=== PATIENT | female | born 1940 | race African-American/Black ===

== ENCOUNTER 2018-12-28 18:46 | Emergency (ER) | payer OTHER ==
[~2018-12-28] VITALS: Ht 162.6 cm; Wt 81.2 kg
[2018-12-28] MEDS ORDERED: JANUMET 50-1,01 EACH ORAL (19:08)
--- NOTE | 2018-12-28 19:21 | NUR ---
ED Nurse Note: Pt came in due to right foot pain and swelling started yesterday. AO4. NAD. VSS. SWELLING ON RIGHT FOOT NOTED.
[2018-12-28 19:25] VITALS: BP 136/76
[2018-12-28] MEDS ORDERED: Cephalexin 500mg cap ORAL ONE (20:15)
[2018-12-28] MEDS ORDERED: CEPHALEXIN500 MG ORAL (20:22)
[2018-12-28] MEDS ORDERED: TYLENOL EXTRA500 MG ORAL (20:28)
[2018-12-28 20:30] VITALS: BP 136/76
--- NOTE | 2018-12-28 20:30 | NUR ---
ER DISCHARGE NOTE: Patient is cleared to be discharged per ERMD, pt is aox4, on room air, with stable vital signs. pt was given dc and prescription instructions, pt was able to verbalize understanding, pt id band REMOVED. pt is able to ambulate with steady gait. pt took all belongings.
--- NOTE | 2018-12-28 21:22 | Emergency Room Report ---
History of Present Illness General Chief Complaint: Edema Source: Patient Present Illness HPI 78-year-old female presents ED for evaluation. Presents with pain and swelling to her right foot starting yesterday. States that she does have generalized pedal edema to both feet and is taking Lasix but states that there is increased swelling to her right foot. Throbbing, 7 out of 10, nonradiating. Feels warm. History of diabetes. Denies fevers or chills. Denies any recent fall or injury. No other aggravating relieving factors. Denies any other associated symptoms Allergies: Coded Allergies: No Known Allergies (Verified Allergy, Unknown, 07/31/06) Patient History Past Medical History: DM Past Surgical History: none Pertinent Family History: none Social History: Denies: smoking, alcohol use, drug use Now: No Immunizations: UTD Reviewed Nursing Documentation: PMH: Agreed; PSxH: Agreed Nursing Documentation-PMH Past Medical History: No History, Except For Hx Diabetes: Yes Review of Systems All Other Systems: negative except mentioned in HPI Physical Exam Vital Signs Date Time Temp Pulse Resp B/P (MAP) Pulse Ox O2 Delivery O2 Flow Rate FiO2 12/28/18 19:03 99.3 96 17 136/76 94 Room Air Sp02 EP Interpretation: reviewed, normal General Appearance: no apparent distress, alert, GCS 15, non-toxic Head: normocephalic Eyes: bilateral eye normal inspection, bilateral eye PERRL ENT: normal ENT inspection Neck: normal inspection Respiratory: normal inspection Cardiovascular #1: normal inspection Gastrointestinal: normal inspection Rectal: deferred Genitourinary: no CVA tenderness Musculoskeletal: swelling - bilateral feet Neurologic: alert, oriented x3, responsive, motor strength/tone normal, sensory intact, speech normal Psychiatric: normal inspection Skin: other - erythema/warmth to R foot. no flucutance or discharge Lymphatic: normal inspection Medical Decision Making Diagnostic Impression: Primary Impression: Cellulitis of foot ER Course Hospital Course 78-year-old female presents to ED with pain/swelling to R foot Differential diagnoses include: Cellulitis, dermatitis, insect bite, abscess Clinical course Patient placed on stretcher. After initial history, physical exam reveals an elderly female in no acute distress. On exam there is some erythema and swelling to the right foot around the first big toe. No fluctuance or discharge. No bruising or crepitus. There is some generalized swelling to both feet. swelling. No calf tenderness. X-ray shows no evidence of acute fracture. Discussed findings with patient. Likely mild cellulitis. Patient is a diabetic. No evidence of penetrating wound injury. We will discharge with antibiotics. Safe for discharge or close outpatient follow-up. States she has a PMD. Given Keflex and pain medications here. Diagnosis - cellulitis of foot stable and discharged to home with prescription for tylenol, Keflex. warm compresses. elevation of foot. Instructed to followup with PMD. Instructed return to ED if symptoms recur or worsen Last Vital Signs Date Time Temp Pulse Resp B/P (MAP) Pulse Ox O2 Delivery O2 Flow Rate FiO2 12/28/18 20:30 99.3 96 17 136/76 94 Room Air Status: improved Disposition: HOME, SELF-CARE Condition: Stable Scripts Acetaminophen* (TYLENOL EXTRA STRENGTH*) 500 Mg Tablet 500 MG ORAL Q8H PRN for Prn Headache/Temp > 101, #30 TAB 0 Refills Prov: Rupesh Alonso MD 12/28/18 Cephalexin* (KEFLEX*) 500 Mg Capsule 500 MG ORAL EVERY 6 HOURS for 7 Days, CAP Prov: Rupesh Alonso MD 12/28/18 Patient Instructions: Cellulitis, [id number], Edema, [id number] Rupesh Alonso MD Dec 28, 2018 21:22
--- NOTE | 2018-12-29 09:19 | Diagnostic Imaging Report ---
Indication: Right foot pain Technique: 3 views right foot Comparison: none Findings: First metatarsal demonstrates old healed fracture or old healed osteotomy. There is also evidence of prior bunionectomy. There is evidence of possible prior shaving of the lateral head of the fifth metatarsal. There is evidence of prior osteotomy at the second proximal interphalangeal joint. No acute fractures. No dislocations. There are mild degenerative changes of the midfoot Impression: Postsurgical and possible post traumatic changes, as described No acute abnormality
== END 2018-12-28 20:30 | disposition home or self-care (01) ==
LOC: EMR 19:35
DX: L03.115 Cellulitis of right lower limb (principal); E11.9 Type 2 diabetes mellitus without complications
CPT/HCPCS: 99283